=== PATIENT | male | born 1970 | race Caucasian/White ===

== ENCOUNTER 2018-02-21 14:41 | Inpatient (IN) | payer OTHER ==
[2018-02-21] MEDS ORDERED: NS 1,000 ML IV ONE (14:49)
--- NOTE | 2018-02-21 14:54 | EDPHY ---
H & P Time Seen by Provider: 02/21/18 14:51 HPI/ROS: CHIEF COMPLAINT: Seizure HISTORY OF PRESENT ILLNESS: The patient is a 47-year-old man with a history of heavy alcohol use who is brought to the emergency department after having a seizure. Paramedics state that 911 was called because the patient was having tingling on the right side of his body and had to sit down. When paramedics arrived the patient was actively seizing. They gave him 5 of Valium in his seizure a resolved. He has been postictal ever since. Family reports history of heavy alcohol use. Patient tells me he last drank yesterday evening around 9 o'clock. No history of previous surgeries. No history of trauma. No focal weakness. No headache. REVIEW OF SYSTEMS: Constitutional: denies: chills, fever, recent illness, recent injury EENTM: denies: blurred vision, double vision, nose congestion Respiratory: denies: cough, shortness of breath Cardiac: denies: chest pain, irregular heart rate, lightheadedness, palpitations Gastrointestinal/Abdominal: denies: abdominal pain, diarrhea, nausea, vomiting, blood streaked stools Genitourinary: denies: dysuria, frequency, hematuria, pain Musculoskeletal: denies: joint pain, muscle pain Skin: denies: lesions, rash, jaundice, bruising Neurological: See HPI denies: headache, dizziness, weakness Hematologic/Lymphatic: denies: blood clots, easy bleeding, easy bruising Immunologic/allergic: denies: HIV/AIDS, transplant EXAM: GENERAL: Slightly confused, well-nourished and in no acute distress. HEAD: Atraumatic, normocephalic. EYES: Pupils equal round and reactive to light, extraocular movements intact, sclera anicteric, conjunctiva are normal. ENT: TMs normal, nares patent, oropharynx clear without exudates. Moist mucous membranes. NECK: Normal range of motion, supple without lymphadenopathy or JVD. LUNGS: Breath sounds clear to auscultation bilaterally and equal. No wheezes rales or rhonchi. HEART: Regular rate and rhythm without murmurs, rubs or gallops. ABDOMEN: Soft, nontender, normoactive bowel sounds. No guarding, no rebound. No masses appreciated. BACK: No CVA tenderness, no spinal tenderness, step-offs or deformities EXTREMITIES: Normal range of motion, no pitting or edema. No clubbing or cyanosis. NEUROLOGICAL: Slightly slurred speech, Cranial nerves II through XII grossly intact. 5/5 strength, normal movement in all extremities, normal sensation PSYCH: Normal mood, normal affect. SKIN: Warm, dry, normal turgor, no visible rashes or lesions. Source: Patient, Family, EMS Exam Limitations: No limitations - Personal History Tetanus Vaccine Date: < 10 yrs - Medical/Surgical History Hx Asthma: No Hx Chronic Respiratory Disease: No Hx Diabetes: No Hx Cardiac Disease: No Hx Renal Disease: No Hx Cirrhosis: No Hx Alcoholism: No Hx HIV/AIDS: No Hx Splenectomy or Spleen Trauma: No Other PMH: dental surgery - Family History Significant Family History: No pertinent family hx - Social History Smoking Status: Current every day smoker Alcohol Use: Heavy Drug Use: None Constitutional: Initial Vital Signs Temperature (C) 36.8 C 02/21/18 14:41 Heart Rate 123 H 02/21/18 14:41 Respiratory Rate 32 H 02/21/18 14:41 Blood Pressure 134/82 H 02/21/18 14:41 O2 Sat (%) 89 L 02/21/18 14:41 O2 Delivery Mode Room Air O2 (L/minute) 2 Allergies/Adverse Reactions: No Known Allergies Allergy (Unverified 01/27/11 11:47) Home Medications: Medication Instructions Recorded Bupropion HCl [Zyban] 150 mg PO BID 02/21/18 Fexofenadine HCl [Meli Allergy] 180 mg PO DAILY PRN 02/21/18 Medical Decision Making - Diagnostics EKG Interpretation: An EKG obtained and was read and documented in trace view. Please see trace view for full reading and report. Sinus tachycardia, no acute ischemic changes Imaging Results: Imaging Impressions Head CT 02/21/18 14:50 Impression: Normal brain. No source for seizure identified. Results called and discussed with TENZIN RUSSELL, at 02/21/2018 15:42 General information for patients regarding this examination can be found at [email or web address]. If you have questions or comments about this report, please contact me at [phone] (hospital) or [phone] (cell). Brain MRI 02/21/18 16:13 Impression: Abnormal T2-weighted signal involving the posterior inferior left frontal and anterior inferior left parietal junction with 2 discrete subcentimeter ring-enhancing lesions, most concerning for primary versus metastatic malignancy. Most of the abnormal T2-weighted signal however is not enhancing, although there is restricted diffusion. Neurosurgical consultation is suggested. Findings were discussed with TENZIN RUSSELL MD at 18:13, on 02/21/2018. Imaging: Discussed imaging studies w/ fisher scallop Radiologist ED Course/Re-evaluation: 415 p.m. I spoke with Dr. Delaney from Neurology about the unusual nature the patient's seizure. There seem to be a generalized tonic-clonic component but also a partial complex component prodrome described by the father in law as paresthesias on his right side then slurred speech then facial droop. Neurology recommends we get an MRI with and without to rule out mass and if that is negative he can follow up in the clinic for further testing. No antiepileptic medications recommended at this time. We also discussed the possibility of alcohol withdrawal this seems less likely because the patient drinks 4-5 drinks every evening for the and typically does not drink during the day and has never had trouble with withdrawal before although his thinks that he did have elevated LFTs several years ago and was on medications to prevent withdrawal symptoms for about a week. 6:30 p.m. we discussed the patient's MRI results. I discussed them with Dr. Louis from Neurosurgery. He agrees that this is lost likely metastasis. He recommends admission for medical an oncologic workup. He will consult. I will start the patient on Keppra. He is a current smoker. 6:40 p.m. I discussed the case with Dr. Brasher who will admit to the medical service. Differential Diagnosis: Partial list of the Differential diagnosis considered include but were not limited to; alcohol withdrawal, epilepsy, cancer, tumor and although unlikely based on the history and physical exam, I also considered infection, trauma. Critical Care Time: Critical care time spent by me, Dr. Russell exclusive with this patient was 45 minutes, exclusive of the PA time exclusive of procedures. The organ system that was at risk was neurologic and I gave medications, diagnosis, consultation and admission to prevent worsening of the patient's condition - Data Points Laboratory Results: Laboratory Results 02/21/18 14:40 02/21/18 14:40 06/02/18 06/02/18 06/02/18 14:40 14:40 14:40 WBC 9.16 10^3/uL 10^3/uL (3.80-9.50) RBC 4.93 10^6/uL 10^6/uL (4.40-6.38) Hgb 15.7 g/dL g/dL (13.7-17.5) Hct 47.9 % % (40.0-51.0) MCV 97.2 fL fL (81.5-99.8) MCH 31.8 pg pg (27.9-34.1) MCHC 32.8 g/dL g/dL (32.4-36.7) RDW 12.1 % % (11.5-15.2) Plt Count 246 10^3/uL 10^3/uL (150-400) MPV 9.9 fL fL (8.7-11.7) Neut % (Auto) 35.5 % L % (39.3-74.2) Lymph % (Auto) 51.3 % H % (15.0-45.0) Dewitt % (Auto) 9.1 % % (4.5-13.0) Eos % (Auto) 3.3 % % (0.6-7.6) Baso % (Auto) 0.5 % % (0.3-1.7) Nucleat RBC Rel Count 0.0 % % (0.0-0.2) Absolute Neuts (auto) 3.25 10^3/uL 10^3/uL (1.70-6.50) Absolute Lymphs (auto) 4.70 10^3/uL H 10^3/uL (1.00-3.00) Absolute Monos (auto) 0.83 10^3/uL H 10^3/uL (0.30-0.80) Absolute Eos (auto) 0.30 10^3/uL 10^3/uL (0.03-0.40) Absolute Basos (auto) 0.05 10^3/uL 10^3/uL (0.02-0.10) Absolute Nucleated RBC 0.00 10^3/uL 10^3/uL (0-0.01) Immature Gran % 0.3 % % (0.0-1.1) Immature Gran # 0.03 10^3/uL 10^3/uL (0.00-0.10) PT 13.2 SEC SEC (12.0-15.0) INR 0.98 (0.83-1.16) Sodium 141 mEq/L mEq/L (135-145) Potassium 4.3 mEq/L mEq/L (3.3-5.0) Chloride 101 mEq/L mEq/L (97-110) Carbon Dioxide 13 mEq/l L mEq/l (22-31) Anion Gap 27 mEq/L H mEq/L (8-16) BUN 17 mg/dL mg/dL (7-23) Creatinine 1.3 mg/dL mg/dL (0.7-1.3) Estimated GFR 59 Glucose 116 mg/dL H mg/dL (70-100) Calcium 8.7 mg/dL mg/dL (8.5-10.4) Ethyl Alcohol < 10 mg/dL mg/dL (0-10) Medications Given: Discontinued Medications Sodium Chloride (Ns) 1,000 mls @ 0 mls/hr IV ONCE ONE; Wide Open PRN Reason: Protocol Stop: 02/21/18 14:50 Last Admin: 02/21/18 15:19 Dose: 1,000 mls Levetiracetam (Keppra (Premix)) 100 mls @ 400 mls/hr IV EDNOW ONE Stop: 02/21/18 18:50 Last Admin: 02/21/18 18:54 Dose: 100 mls Departure - Departure Disposition: [facility] Acute Clinical Impression: Metastasis to brain, Seizure Condition: Critical
[2018-02-21 15:17] LABS: PLATELET COUNT 246 10^3/uL (150-400)
[2018-02-21 15:28] LABS: INR 0.98 (0.83-1.16); PROTIME(PATIENT) 13.2 SEC (12.0-15.0)
--- NOTE | 2018-02-21 15:28 | CPEKG ---
Heart Rate: 100 RR Interval: 600 P-R Interval: 184 QRSD Interval: 104 QT Interval: 372 QTC Interval: 480 P Astatula: 70 QRS Astatula: 14 T Wave Astatula: 36 EKG Severity - BORDERLINE ECG - EKG Impression: SINUS TACHYCARDIA Electronically Signed By: Gerardo Russell 21-Feb-2018 15:28:56
[2018-02-21] MEDS ORDERED: GADOBUTROL 10 ML VIAL IVP ONE (16:36)
[2018-02-21] MEDS ORDERED: levETIRAcetam 500MG/NACL 100 ML IV ONE (18:36)
[2018-02-21] MEDS ORDERED: ONDANSETRON 4 MG/2 ML VIAL IVP PRN (20:38)
[2018-02-21] MEDS ORDERED: ACETAMINOPHEN 325 MG TAB PO PRN (20:38)
[2018-02-21] MEDS ORDERED: oxyCODONE IR 5 MG TAB PO PRN (20:38)
[2018-02-21] MEDS ORDERED: LORazepam 0.5 MG TAB PO PRN (20:38)
[2018-02-21] MEDS ORDERED: HYDROmorphone HCL/NS 0.5 MG/ML SYR IVP PRN (20:38)
[2018-02-21] MEDS ORDERED: LORazepam 2 MG/ML INJ IVP PRN (20:38)
[2018-02-21] MEDS ORDERED: PROMETHAZINE HCL 25 MG/ML INJ IVP PRN (20:38)
[2018-02-21] MEDS ORDERED: ONDANSETRON DISINTEGRATING 4 MG TAB PO PRN (20:38)
[2018-02-21] MEDS ORDERED: BUPROPION HCL 150 MG PO SCH (21:00)
--- NOTE | 2018-02-21 23:08 | GHP ---
[f rep st] HISTORY AND PHYSICAL DATE OF ADMISSION: 02/21/2018 CHIEF COMPLAINT: Seizure. HISTORY: This is a 47-year-old man with no significant past medical history other than heavy alcohol use, who presents status post a seizure at home. Patient notes that he was in the process of moving boxes when he began to feel significant tingling in his right arm. This was concerning enough to hi m that he walked over to his neighbor's house who is a retired MD and asked him to call 911. Patient notes that shortly after that he sat down and though he was able to maintain consciousness and was a rodriguez of his surroundings, he was unable to speak. He does not remember anything after that until sergey wing up in the hospital. His present at bedside notes that shortly after he sat down, he did de velop a full-blown tonic colonic seizure. This lasted 2-3 minutes per her estimation. After the sei zure abated, he was sleeping and very somnolent and intermittently confused for quite some time after wards. He has never had a seizure before. He does note that he drinks 4 to 7 beers every night, but has never had symptoms of withdrawal when he does not drink. A brain MRI was performed in the ER, w hich was concerning for 2 ring-enhancing lesions that Radiology felt were likely metastatic in nature . Neurosurgery was consulted and requested patient be admitted to Medicine. At the time of my evalu ation, patient is sleepy, but otherwise has no complaints. PAST MEDICAL HISTORY: None. PAST SURGICAL HISTORY: None. FAMILY HISTORY: Father with 2 TIAs and then of an NM. Brother had a CVA at age 42, but is othe rwise healthy. SOCIAL HISTORY: Patient is . He drinks 4 to 7 beers per night. He has been a smoker for 30+ pack-years. The patient works doing an online business. REVIEW OF SYSTEMS: A 10-point review of systems obtained, negative except as per HPI. The patient s pecifically denies any cough, GI issues, masses, or weight loss. HOME MEDICATIONS: Include: 1. Meli. 2. Bupropion. ALLERGIES: No known drug allergies. PHYSICAL EXAM: VITAL SIGNS: BP 117/86, heart rate 90, respiratory rate 16, O2 sats 94% on room air, temperature is 36.8. GENERAL APPEARANCE: Well-developed, well-nourished male. He is awake and cesar rt. No acute distress. EYES: Anicteric. HENT: Oropharynx is clear, MMM. CARDIOVASCULAR: RRR. No MRG. PULMONARY: CTA bilaterally. Normal work of breathing. ABDOMEN: Soft, nontender. Positiv e bowel sounds. EXTREMITIES: No clubbing, cyanosis, or edema. SKIN: Warm, dry, well perfused. LYMPHATIC: No axillary or cervical lymph nodes appreciated. EXTREMITIES: No clubbing, cyanosis, or edema. CLINICAL DATA: CBC is unremarkable. Chemistry is notable for a glucose of 116. less shaan n 10. EKG personally reviewed and interpreted, sinus tachycardia, no ischemic changes. Head CT unremarkable, personally reviewed. Brain MRI shows 2 discrete subcentimeter ring-enhancing lesions, most concerning for primary versus m etastatic malignancy. ASSESSMENT AND PLAN: This is a 47-year-old man, past medical history of alcohol abuse presenting wit h seizure and found to have most likely metastatic disease to the brain. 1. Seizure. This is felt to be most likely related to 2 lesions in his brain, though he does also h ave a history of heavy alcohol use. He will be kept on seizure precaution with p.r.n. Ativan availab le as needed. He does not have any signs of alcohol withdrawal at this time. 2. Brain lesions. These do appear consistent with metastatic disease per Radiology and Neurosurgery . CT chest, abdomen, pelvis have been ordered to look for primary lesion. He does not have any real localizing symptoms. Has never had a colonoscopy. We will check PSA, LDH, CEA, beta hCG and alpha fetoprotein. If there is something to biopsy, we will attempt to perform this in the morning. This is discussed at length with the patient and his . 3. Alcohol abuse. Again, currently no evidence of withdrawal. He has states he has never had withd rich in the past. We will monitor but have a low threshold to start CIWA. 4. Inpatient status. Suspect patient will need greater than 48 hours stay for evaluation and manage ment of above. 5. Patient is new to my care. Old records reviewed, summarized as per HPI and past medical history. Further history obtained from patient's , present at bedside. /[id number]/MODL
--- NOTE | 2018-02-22 08:39 | GCON ---
[f rep st] CONSULTATION DATE OF CONSULTATION: 02/22/2018 CONSULTING SERVICE: Emergency and Hospitalist Medicine. DEVELOPMENTAL WRITING INSTRUCTOR: Neurosurgery, Dr. Michel. REASON FOR CONSULT: First-time seizure with 2 small enhancing lesions on his MRI of the brain. HISTORY OF PRESENT ILLNESS: The patient is a 47-year-old male who has 30+ pack-year smoking history and moderate to heavy alcohol use, who presented to our emergency room yesterday after a witnessed ge neralized tonic-clonic seizure at home. This is his first-time seizure. His was present. He w as initially complaining of tingling in his right arm and walked over to a neighbor's house who is a retired doctor asking them to call 911. He then lost ability to speak and then developed a full-blow n tonic-clonic seizure that lasted approximately 2-3 minutes. After the seizure ended, he was quite somnolent and slowly came to, but was intermittently confused for quite a bit afterwards. He came in to the emergency room where a tox screen was done, which was negative including for alcohol use. He has never had withdrawal symptoms before. Head CT demonstrated no acute significant findings. Then, an MRI of the brain was done which demonstrated 2 small enhancing lesions in the left temporal regio n and some scattered FLAIR abnormalities on both sides of the brain. This morning, he is sleeping ca lmly, but easily arousable and gives his own history. He has no complaints. PAST MEDICAL AND SURGICAL HISTORY: Per HPI, otherwise negative. ALLERGIES: No known drug allergies. CODE STATUS: Full. FAMILY HISTORY: Father had 2 transient ischemic attacks and of a myocardial infarction. Brothe r had a stroke at age 42. SOCIAL HISTORY: . Drinks 4 to 7 beers a day. Smokes currently, and has a 30+ pack-year hist ory. 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 REVIEW OF SYSTEMS: Ten points reviewed and negative other than stated in HPI. HOME MEDICATIONS: Meli and bupropion. PHYSICAL EXAM: VITAL SIGNS: The patient is afebrile at 36.8 degrees centigrade. His heart rate is 72. His blood pressure is 96/63, his respiratory rate is 16, and he is saturating 95% on room air. NEUROLOGIC: The patient is asleep, but easily arousable. Once aroused, he is oriented x3. He is fl uent in speech. He has normal cranial nerves. He has 5/5 strength in upper and lower extremities. He does not have a pronator drift. He has normal sensory exam to light touch and pinprick. He has n ormal deep tendon reflexes. He does not have a Ambrose's, clonus, or Babinski sign. He does not hav e cerebellar findings. Gait is deferred. LABS: White blood cell count is 9.16, hemoglobin is 15.7, platelet count is 246. INR 0.98. Sodium is 141, potassium is 4.3, BUN 17, creatinine 1.3, glucose 116. Lactate dehydrogenase is elevated at 686. Other tumor markers pending. Tox screen negative. Alcohol level less than 10. IMAGING: I reviewed the patient's noncontrasted head CT and agree that it is a normal study. I revi ewed the patient's MRI of the brain with and without contrast and agree with 2 small enhancing lesion s in the left temporal region with some scattered FLAIR abnormalities on both sides of the brain that are also very small. IMPRESSION AND PLAN: The patient is a 47-year-old male with a history significant for alcohol use an d 30+ pack years of smoking history who had a first-time seizure yesterday and presented to the [facility] ency room where an MRI of the brain was performed demonstrating 2 small enhancing lesions in the left temporal region, likely representing metastatic cancer. The patient has been admitted to the medici ne service for metastatic workup. differential includes lung cancer. These lesions are s mall and it would be our hope that a diagnosis can be obtained without having to biopsy them. If a d iagnosis is made without the need for a brain biopsy, there is no role for surgical resection given t heir small size and we will determine systemic and radiation treatment after diagnosis has been obtai alyce. Given the fact the patient did have a seizure, I recommend he be placed on Keppra 750 mg twice a day by mouth and I have ordered this. We are following closely along. /[id number]/MODL
[2018-02-22] MEDS ORDERED: CETIRIZINE 10 MG TAB PO PRN (09:00)
[2018-02-22] MEDS ORDERED: ENOXAPARIN 40 MG/0.4 ML SYR SC SCH (09:00)
--- NOTE | 2018-02-22 09:37 | ASMTCMCOM ---
CM Note CM Note Notes: 47yr old male admitted for Sz, Brain lesions. Has a Hx of heavy ETOH and a smoker. Lives with his . May not get biopsied. May not have discharge needs at this time. Date Signed: 02/22/2018 09:36 AM Electronically Signed By:Naty Escalante LCSW
[2018-02-22] MEDS ORDERED: IOPAMIDOL (ISOVUE-300) 100 ML BTL ONE (10:53)
[2018-02-22] MEDS: levETIRAcetam 500 MG TAB PO SCH ×2 (11:01→20:44)
[2018-02-22] MEDS: buPROPion SR 100 MG TAB PO SCH ×2 (11:01→20:46)
--- NOTE | 2018-02-22 15:11 | GCON ---
[f rep st] CONSULTATION MEDICAL ONCOLOGY CONSULTATION DATE OF CONSULTATION: 02/22/2018 REASON FOR CONSULTATION: Further workup of brain lesions suspicious for metastatic disease with unkn own primary. RECOMMENDATIONS: 1. Since there is no obvious primary found on CT of the chest, abdomen, and pelvis, I would recommen d re-evaluation by Neurosurgery for biopsy. The tissue will be necessary to be able to rule in or ru le out malignancy, and in addition to give us information about tissue type, possible primary sites, and also be able to guide therapy. 2. Patient will likely need radiation therapy to the identified brain lesions if malignancy is ruled in. This will likely be carried out by [facility]. 3. I agree with using Keppra in an attempt to keep his seizures under control. 4. I advised him he should be seizure-free for 3 months before considering driving he can. 5. The patient will likely need additional workup as an outpatient to define the source of primary, as well as extent of disease. This will likely be with a PET-CT scan, endoscopies, or other testing deemed appropriate by the tissue type. ASSESSMENT: This 47-year-old white male presents with a new onset of seizures. The seizures started after he was moving to new home. He developed tingling and shaking in his right arm, which eventual ly went into his face, caused slurred speech, and then loss of conscious. This was witnessed by his neighbor who is a retired physician. 911 was called and the patient was brought to [facility] for further evaluation. The patient's MRI showed at least 2 lesions that are suspicious for metasta tic disease. The patient has no known primary cancer at this time. He had a CT of the chest, abdomen, and pelvis, which did not reveal obvious evidence of primary malignancy or a lesion that was easier to biopsy. He has been started on Keppra for his seizures. The patient has been seen by Neurosurgery. Since ere is no obvious easier place to get to for tissue, I have recommended that he see Dr. Michel once a gain for consideration for biopsy. The prognosis and treatment are going to be dictated by the tissue type. This will to be dictated by tissue type, as well as extent of disease. We discussed a variety of different etiologies that can present in this fashion, such as adenocarcinomas, melanoma, sarcoma, as well as carcinoma of unknown primary. Further treatment planning and prognostication will need to wait for further workup. HISTORY OF PRESENT ILLNESS: Please see assessment. PAST MEDICAL HISTORY: Essentially otherwise unremarkable. PAST SURGICAL HISTORY: Also essentially unremarkable. FAMILY HISTORY: Remarkable for his father dying of myocardial infarction and having had 2 TIAs. His brother had a CVA at age 42. SOCIAL HISTORY: The patient is . He had been drinking alcohol fairly heavily until approxima marion 3 months ago, then because of abnormal liver functions, stopped drinking. His liver functions w ent back down to normal. He has resumed drinking alcohol again at a somewhat lower level, however. The patient is a current smoker and has smoked approximately a 30+ pack years. He has been employed mostly in the financial industry. He works mostly from home at this time. REVIEW OF SYSTEMS: In addition to being remarkable for his above-mentioned seizure. Is remarkable f or some weight loss of approximately 15 pounds, but this occurred when stopping drinking. His weight is now stabilized. He reports no nausea or vomiting. Reports no fevers. He has had no unusual lym phadenopathy. He has had no change in bowel or bladder habits. He does not have skin exams on a reg ular basis. PHYSICAL EXAMINATION: GENERAL: Reveals an alert white male in no acute distress. HEENT: Essential ly unremarkable. NECK: Supple without adenopathies. LUNGS: Clear to auscultation. CARDIAC: Regu lar rate and rhythm abdominal exam shows normal bowel sounds. No hepatosplenomegaly is noted. LYMPH NODES: Peripheral lymph node exam shows no palpable adenopathy in the neck, axilla, or groin bilate rally. LOWER EXTREMITIES: Show no edema. SKIN: Shows 2 somewhat dark, but flat, round lesions on his back that are slightly very variegated in color, but not ulcerated. These are not particularly s uspicious for melanoma, but I suppose could be a possible source. LABORATORY DATA: Remarkable for normal creatinine of 1.3. His LDH is slightly elevated at 686 with the upper limit being 618. CEA is normal at 2.63. His alpha fetoprotein is normal at 2.45. His PSA is pending. His CBC shows normal white count of 9.16 with a hemoglobin of 15.7 and a platelet count of 246,000. His toxicology screen is negative. His INR is normal at 0.98. Thank you very much for allowing us to participate in this pleasant gentleman's oncologic care, and katharine hood look forward to assisting with his management during this hospitalization, as well as after dischar ge. /[id number]/MODL
[2018-02-22] MEDS ORDERED: PEG 3350/NA SULF,BICARB,CL/KCL (GAVILYTE-G) 4000 ML BTL PO ONE (15:18)
--- NOTE | 2018-02-22 15:49 | HOSPPROG ---
Hospitalist Progress Note Assessment/Plan: The patient is a 47-year-old male with PMH tobacco dependence, alcohol use who was admitted for seizure and found to have 2 lesions in his brain. ASSESSMENT/PLAN: Ring enhancing lesions on MRI - likely metastatic cancer Seizure, 2/2 above Tobacco dependence Alcohol use disorder -DDx metastatic cancer, primary cancer (astrocytoma or lymphoma), abscess/ infection, demyelinating syndrome (MS), migraine-induced vasculitis. -Discussed case w/ Oncology, GI, NSG, and Radiology. -CT chest/abd/pelvis negative for a source of primary cancer. Physical exam - no evidence of melanoma or breast cancer. -Consulted GI, see below. -Although GI primary cancers rarely metastasize to brain, pt is old enough for CRC screening (recommended age to start is 45yo per [employer]) and he has risk factors for upper GI cancer w/ smoking/alcohol use. GI to do EGD /colonoscopy tomorrow to evaluate for an alternate possible source. -NSG can do a biopsy this week - earliest would be on Friday. Tomorrow Dr. Michel will arrange a biopsy for Friday. -Continue Keppra now and on DC. -Avoid steroid and check HIV test (per NSG). -Seizure precautions, CIWA protocol, lorazepam prn VTE prophylaxis: not needed - pt is ambulatory. Code Status: Full Status: Inpatient for greater than 2 midnight stay. Disposition: Med surge with discharge anticipated tomorrow, after patient gets procedures done in AM and gets on the OR schedule for biopsy. This patient is new to me. reviewed chart. ____ Subjective: Today pt feels well, no seizures. Objective: Vital Signs Temp Pulse Resp BP Pulse Ox 36.6 C 70 16 104/65 94 02/22/18 12:02 02/22/18 12:02 02/22/18 12:02 02/22/18 12:02 02/22/18 12:02 02/21/18 02/22/18 02/23/18 05:59 05:59 05:59 Intake Total 500 Output Total 700 Balance -200 PT 13.2 SEC (12.0-15.0) 02/21/18 14:40 INR 0.98 (0.83-1.16) 02/21/18 14:40 OBJECTIVE: Physical Exam: General: The patient is a tall male who is alert and in no acute distress. HEENT: normocephalic, extraocular movements intact, conjunctivae clear. Mucous membranes moist. Neck: trachea midline, no visible masses. Abd: soft and nondistended. Bowel sounds present. Non tender throughout. Musculoskeletal: Normal muscle tone/bulk. Neuro: cranial nerves II XII grossly intact. Intact gross motor and sensory function. Psych: Appropriate mood and appropriate affect. Skin: No concerning nevi noted on skin. 1 mm round nevus on right thoracic back with slightly irregular coloration. Heme/lymph: No peripheral edema at bilateral lower extremities. Genital exam-no testicular masses or lesions noted. Breast: Pectoral tissue appears symmetric without any superficial lesions. No peau de orange or ecchymosis. No drainage or discharge from the nipples bilaterally. No palpable masses or lumps. No axillary lymphadenopathy. Labs/Imaging/Other Tests: CT abd/pelv/chest - negative for primary tumor. ICD10 Worksheet Patient Problems: Problems Problem Status Onset Metastasis to brain Acute Seizure Acute
[2018-02-23 04:49] LABS: HIV TYPE 1 AND 2 NEGATIVE (NEGATIVE)
--- NOTE | 2018-02-23 07:15 | NEUSURGPN ---
Assessment/Plan: Assessment: 47 yo male with a 30+ pack yr hx of smoking and heavy ETOH abuse hx as well presented with seizure and noted to have left temporal enhancing lesions Plan: -2 enhancing lesions noted on brain MRI -CT CAP shows no obvious malignancy -pending GI workup today -IM admit-appreciate their care and workup -PT/OT -continue with continue pain control plan -seizure prophylaxis -warning signs given -call with any questions or concerns Subjective: Awake and alert. NAD. Rested well last night. No perez/neck/chest/abd or gu complaints. No f/c/n/v/d. Objective: AAO x 3, PERRLA/EOMI no droop CN 2-12 grossly intact +lt touch 5/5 BUE/BLE = Neuro Check Frequency: per routine Urinary Catheter in Place: No - Physician Discussed Patient with : [facility] Physical Exam - Vitals, I&O, Labs I and O 02/22/18 02/23/18 02/24/18 05:59 05:59 05:59 Intake Total 500 1050 Output Total 700 Balance -200 1050 Weight 81.7 kg Intake: Oral (ml) 500 1050 Output: Urine (ml) 700 Urinal 700 Other: Number of Voids Toilet 1 3 Number of Stools Toilet 3 Vital Signs Temp Pulse Resp BP Pulse Ox 36.6 C 58 L 16 96/65 L 93 02/23/18 05:53 02/23/18 05:53 02/23/18 05:53 02/23/18 05:53 02/23/18 05:53 ICD10 Worksheet Patient Problems: Problems Problem Status Onset Metastasis to brain Acute Seizure Acute
--- NOTE | 2018-02-23 07:41 | GCON ---
[f rep st] CONSULTATION REFERRING PHYSICIAN: Emilia Her DO CHIEF COMPLAINT: Questionable metastatic cancer to the brain. HISTORY OF PRESENT ILLNESS: I have been asked to see this 47-year-old gentleman by Dr. Her for evaluation of possible GI malignancy. The patient has no significant past medical history. Does drink a significant amount of alcohol, 6-7 beers per day. He had a seizure at home. He was moving some boxes and felt some tingling in his right arm. He went to a neighbor for help and then he had an episode of consciousness, where he was aware of his surroundings but was unable to speak. He presented to the hospital with his and while at the hospital, he developed a tonic-clonic seizure that lasted 2-3 minutes. He was somewhat postictal afterwards and confused. No prior history of seizures. He had a brain MRI done in the ER, which was concerning for 2 ring-enhancing lesions in the brain concerning for metastatic cancer. Neurosurgery was consulted. The patient had a full body CT scan of the chest and abdomen, which was unremarkable. He has no GI symptoms. Oncology was consulted. They recommended a biopsy to rule out malignancy. He was started on Keppra and it is also recommended he undergo a PET-CT scan as well as upper endoscopy and colonoscopy, per Oncology. As mentioned, he has no GI symptoms. He has no nausea, vomiting, heartburn, epigastric pain. No change in bowel habits. No diarrhea or constipation. No blood per rectum. He has no family history of colon cancer, colon polyps. Asked to see patient for further evaluation. PAST MEDICAL HISTORY: Negative. PAST SURGICAL HISTORY: Negative. FAMILY HISTORY: Remarkable for father who has had TIAs, of an ME. Brother , CVA at 42. Otherwise, family history is noncontributory per chief complaint. SOCIAL HISTORY: The patient is . Drinks 4-7 beers per day. Smoker, 30- pack years. MEDICATIONS: Meli and bupropion. ALLERGIES: He has no known drug allergies. REVIEW OF SYSTEMS: Negative for 10 systems other than mentioned in HPI. PHYSICAL EXAM: VITAL SIGNS: 96/65, heart rate 58, respiratory rate 16, 93%, 36.6, his temperature. GENERAL APPEARANCE: Pleasant gentleman lying in bed in no acute distress. HEENT: Normocephalic, atraumatic. EOMI. NECK: Supple. No cervical adenopathy. No thyromegaly. Mucous membranes moist. LUNGS: Clear. CARDIAC: Normal S1, S2 without murmur. ABDOMEN: Benign, soft. Normal bowel sounds. No hepatosplenomegaly. Nontender. EXTREMITIES: Without clubbing, cyanosis, edema. NEUROLOGIC: Grossly nonfocal. SKIN: Warm, dry, and intact. PSYCH: Alert and oriented x3. Normal affect. LABORATORY DATA: White count of 9.16, hemoglobin 15.7, hematocrit 47.9, platelets of 246,000. PT of 13.2, INR 0.98. Serum chemistries: Serum sodium 141, potassium 4.3, chloride 101, BUN 17, creatinine 1.3, blood sugar 116. Liver function tests: Total bilirubin of 1.0, AST of 42, ALT of 33, alkaline phosphatase 54. IMPRESSION: A 47-year-old gentleman with seizure and questionable metastatic disease to the brain. Unknown primary. Initial imaging with CT of the chest and abdomen were unremarkable. We will proceed with diagnostic endoscopy, colonoscopy for evaluation for occult malignancy/gastrointestinal malignancy. RECOMMENDATIONS: EGD today. We will ask Anesthesia for assistance due to significant history of alcohol use, for assistance with his sedation. We will follow with you. /[id number]/MODL MTDD
[2018-02-23] MEDS ORDERED: fentaNYL 100 MCG/2 ML INJ IVP PRN (08:07)
[2018-02-23] MEDS ORDERED: NALOXONE HCL 0.4 MG/ML INJ IVP PRN (08:07)
[2018-02-23] MEDS ORDERED: ALBUTEROL 3 ML DEYVIAL IH PRN (08:07)
[2018-02-23] MEDS ORDERED: DEXAMETHASONE 4 MG/ML VIAL IVP PRN (08:07)
[2018-02-23] MEDS ORDERED: ONDANSETRON 4 MG/2 ML VIAL IVP PRN (08:07)
[2018-02-23] MEDS ORDERED: HYDROmorphONE/DILAUDID 2 MG/ML INJ IVP PRN (08:07)
--- NOTE | 2018-02-23 08:09 | PDANEPAE ---
ANE History of Present Illness EGD ANE Past Medical History - Cardiovascular History Hx Hypertension: No Hx Arrhythmias: No - Pulmonary History Hx COPD: Yes Hx Oxygen in Use at Home: No Hx Sleep Apnea: No Sleep Apnea Screening Result - Last Documented: Negative - Endocrine History Hx Diabetes: No Hypothyroid: No Hyperthyroid: No Obesity: no - Chronic Pain History Chronic Pain: Yes ANE Review of Systems Review of Systems: - Exercise capacity Exercise capacity: >=4 METS ANE Patient History - Allergies Allergies/Adverse Reactions: No Known Allergies Allergy (Unverified 01/27/11 11:47) - Home Medications Home Medications: Fexofenadine HCl [Meli Allergy] 180 mg PO DAILY PRN 02/21/18 [Last Taken Unknown] buPROPion SR [Wellbutrin 100mg SR (*)] 100 mg PO BID 02/22/18 [Last Taken 09:00] - NPO status NPO Since - Liquids (Date): 02/22/18 NPO Since - Liquids (Time): 00:00 NPO Since - Solids (Date): 02/22/18 NPO Since - Solids (Time): 19:00 - Smoking Hx Smoking Status: Current every day smoker - Alcohol Use Alcohol Use: Heavy ANE Labs/Vital Signs - Labs Result Diagrams: 02/21/18 14:40 02/21/18 14:40 - Vital Signs Blood Pressure: 99/69 Heart Rate: 66 Respiratory Rate: 16 O2 Sat (%): 94 Height: 190.5 cm Weight: 81.7 kg ANE Physical Exam - Airway Neck exam: FROM Mallampati Score: Class 2 - Pulmonary Pulmonary: clear to auscultation - Cardiovascular Cardiovascular: regular rate and rhythym - ASA Status ASA Status: II ANE Anesthesia Plan Anesthesia Plan: GA with mask
[2018-02-23] MEDS ORDERED: PROPOFOL/EMULSION 500 MG/50 ML BOTTLE IV ONE (08:13)
--- NOTE | 2018-02-23 08:29 | GIREPORT ---
[facility] Surgical Services - Endoscopy Department Patient Name: Warren Daigle Procedure Date: 02/23/2018 8:15 AM Patient Type: Inpatient Attending MD/ ER Physician: John Sage MD Procedure: Upper GI endoscopy Indications: Suspected tumor of the GI tract, Exclusion of tumor of the GI tract Providers: John Sage MD Medicines: General Anesthesia Complications: No immediate complications. Description of Procedure: After obtaining informed consent, the endoscope was passed under direct vision. Throughout the procedure, the patient's blood pressure, pulse, and oxygen saturations were monitored continuously. The Endoscope was intro duced through the mouth, and advanced to the second part of duodenum. The [facility] GI endoscopy was accomplished without difficulty. The patient tolerated th e procedure well. Findings: The Z-line was irregular and was found 38 cm from the incisors. Biopsie s were taken with a cold forceps for histology. A small hiatal hernia was present. Patchy mildly erythematous mucosa without bleeding was found in the gas tric antrum. Biopsies were taken with a cold forceps for histology. Patchy mild inflammation was found in the gastric antrum. The examined duodenum was normal. Estimated Blood Loss: Estimated blood loss: none. Post Op Diagnosis: - Z-line irregular, 38 cm from the incisors. Biopsied. - Small hiatal hernia. - Erythematous mucosa in the antrum. Biopsied. - Gastritis. - Normal examined duodenum. Recommendation: - Await pathology results. - Perform a colonoscopy today. - Thank you for allowing me to participate in the care of your patient. Attending Participation: I personally performed the entire procedure. John Sage MD John Sage MD 02/23/2018 8:29:21 AM This report has been signed electronicallyStevmegan Sage MD Number of Addenda: 0 Note Initiated On: 02/23/2018 8:15 AM [email or web address]}
--- NOTE | 2018-02-23 08:43 | GIREPORT ---
[facility] Surgical Services - Endoscopy Department Patient Name: Warren Daigle Procedure Date: 02/23/2018 8:25 AM Patient Type: Inpatient Attending MD/ ER Physician: John Sage MD Procedure: Colonoscopy Indications: Screening for colorectal malignant neoplasm, (Brain mets of uncertain o rigin) Providers: John Sage MD Medicines: General Anesthesia Complications: No immediate complications. Description of Procedure: After obtaining informed consent, the scope was passed under direct vis ion. Throughout the procedure, the patient's blood pressure, pulse, and oxyg en saturations were monitored continuously. The Colonoscope with irrigatio n channel was introduced through the anus and advanced to the cecum, identified by appendiceal orifice and ileocecal valve. The colonoscopy was performed without difficulty. The patient tolerated the procedure well. The quality of the bowel preparation was good. The ileocecal valve, appendi ceal orifice, and rectum were photographed. Findings: A 7 mm polyp was found in the rectum. The polyp was semi-pedunculated. The polyp was removed with a cold snare. Resection and retrieval were compl ete. The exam was otherwise without abnormality on direct and retroflexion v iews. Estimated Blood Loss: Estimated blood loss: none. Post Op Diagnosis: - One 7 mm polyp in the rectum, removed with a cold snare. Resected and retrieved. - The examination was otherwise normal on direct and retroflexion views . Recommendation: - Await pathology results. - Resume regular diet. - Repeat colonoscopy is recommended. The colonoscopy date will be deter mined after pathology results from today's exam become available for review. - If the pathology report reveals adenomatous tissue, then repeat the colonoscopy for surveillance in 5 years. - If the pathology report indicates hyperplastic polyp, then repeat colonoscopy for screening purposes in 10 years. - Thank you for allowing me to participate in the care of your patient. Attending Participation: I personally performed the entire procedure. John Sage MD John Sage MD 02/23/2018 8:42:42 AM This report has been signed electronicallyStferoz Sage MD Number of Addenda: 0 Note Initiated On: 02/23/2018 8:25 AM Total Procedure Duration Time 0 hours 8 minutes 4 seconds [email or web address]}
--- NOTE | 2018-02-23 08:47 | POSTANESTH ---
Post Anesthetic Evaluation Cardiovascular Status: Normal, Stable Respiratory Status: Normal, Stable Level of Consciousness/Mental Status: Can Participate in Eval, Alert and Oriented Pain Control: Adequate, Prn Tx Ordered Nausea/Vomiting Control: Adequate, Prn Tx Ordered Complications Possibly Related to Anesthesia: None Noted
--- NOTE | 2018-02-23 10:41 | SOAPPROG ---
SOAP Progress Note Assessment/Plan: Assessment: 1. seizure 2. 2 gas check pad maker lesions 3. small colon polyp, path pending Plan:Recommend biopsy, discussed scenarios at length with pt and so , if biopsy down the road could go home. 25 minutes 02/23/18 10:38 02/23/18 10:40 Subjective: Feels ok Objective: Vital Signs Temp Pulse Resp BP Pulse Ox 98.1 F 69 15 100/76 97 02/23/18 09:49 02/23/18 09:49 02/23/18 09:49 02/23/18 09:49 02/23/18 09:49 02/22/18 02/23/18 02/24/18 05:59 05:59 05:59 Intake Total 500 1050 150 Output Total 700 0 Balance -200 1050 150 PT 13.2 SEC (12.0-15.0) 02/21/18 14:40 INR 0.98 (0.83-1.16) 02/21/18 14:40 Physical Exam - Physical Exam General Appearance: alert, no apparent distress ICD10 Worksheet Patient Problems: Problems Problem Status Onset Metastasis to brain Acute Seizure Acute
--- NOTE | 2018-02-23 10:47 | ASMTCMCOM ---
CM Note CM Note Notes: Chart reviewed. Met with patient and to offer support and introduce CM to them. The recently moved from [place] to [place].The patient reported drinks beer daily. States he has never withdrawn Poor eye contact. Emotional support given as situation is stressful and though he has evidence of metastatic brain lesions, primary source yet to be identified. Needs to be determined, CM to follow. Plan: TBD. Date Signed: 02/23/2018 10:47 AM Electronically Signed By:Delmy Vera RN
[2018-02-23 11:36] VITALS: BP 106/71
[2018-02-23] MEDS: levETIRAcetam 500 MG TAB PO SCH (11:48)
[2018-02-23] MEDS: buPROPion SR 100 MG TAB PO SCH (11:49)
--- NOTE | 2018-02-23 13:37 | PDDCSUM ---
Discharge Summary Discharge Summary: Dates of service 02/21-02/23/18 Consultations: NSG, oncology, GI Procedures performed: brain MRI, chest/abd/pelvis CT, EGD, colonoscopy Hospital course by problem: # brain lesions: appear to be likely metastatic disease however primary tumor not found despite imaging and upper/lower endoscopy. Plan is for brain biopsy to be performed likely later this week per NSG # seizure: 2/2 above, continue keppra, continue seizure precautions # etoh abuse: no e/o withdrawal, recommend cessation Items for follow up: --brain biopsy --pathology from colonoscopy Dc home f/u with NSG, oncology pending reslts > 35 min spent in dc more than half in coordination of care
--- NOTE | 2018-02-23 14:15 | ASMTCAGE ---
CAGE Do you feel you ought to Answers: Yes cut down on your drinking or drug use? Do people annoy you by Answers: No criticizing your drinking or drug use? Do you feel guilty about Answers: No your drinking or drug use? Do you drink or use drugs Answers: No first thing in the morning ([employer])? Additional Comments declines resources Date Signed: 02/23/2018 02:15 PM Electronically Signed By:Delmy Vera RN
--- NOTE | 2018-02-23 14:20 | ASMTCMCOM ---
CM Note CM Note Notes: Per patient request, financial counselor contacted and will meet with patient at her earliest convenience. Date Signed: 02/23/2018 02:20 PM Electronically Signed By:Delmy Vera RN
--- NOTE | 2018-02-23 16:20 | ASMTLACE ---
DAWOODE Length of stay for Answers: 1 day current admission Acuity / Level of Answers: Yes Care: Did the patient have an inpatient admission? Comorbidities - select Answers: Any tumor (including all that apply lymphoma or leukemia) Other Notes: Sz # of Emergency department Answers: 1-2 visits in the last 6 months Social determinants Answers: History of substance abuse (ETOH, street drugs, prescription drugs, etc.) Score: 11 Date Signed: 02/23/2018 04:19 PM Electronically Signed By:Delmy Vera RN
--- NOTE | 2018-02-23 16:45 | ASMTCMCOM ---
CM Note CM Note Notes: Medically cleared for dc to home. No current needs. CM available should needs arise. Date Signed: 02/23/2018 04:43 PM Electronically Signed By:Delmy Vera RN
== END 2018-02-23 16:53 | disposition home or self-care (01) | DRG 55 ==
LOC: EDUNIT# → EDLOC 18:36 → OBSVTOIN 18:36 → F1N 20:06
PROVIDERS: ADMIT Internal Medicine; ATTEND Internal Medicine
PROC: 0DB68ZX Excision of Stomach, Via Natural or Artificial Opening Endoscopic, Diagnostic (ICD-10-PCS; principal; 2018-02-23 08:00)
PROC: 0DB48ZX Excision of Esophagogastric Junction, Via Natural or Artificial Opening Endoscopic, Diagnostic (ICD-10-PCS; principal; 2018-02-23 08:00)
PROC: 0DBP8ZX Excision of Rectum, Via Natural or Artificial Opening Endoscopic, Diagnostic (ICD-10-PCS; principal; 2018-02-23 08:00)
DX: D49.6 Neoplasm of unspecified behavior of brain (principal); G40.909 Epilepsy, unspecified, not intractable, without status epilepticus; D12.8 Benign neoplasm of rectum; F17.210 Nicotine dependence, cigarettes, uncomplicated; F10.10 Alcohol abuse, uncomplicated; Z82.49 Family history of ischemic heart disease and other diseases of the circulatory system
CPT/HCPCS: 80305; 84154-90; 84702-90; 92523-GN; A9585; G0480; J1953; J2704; Q9967

== ENCOUNTER 2018-02-24 18:19 | Inpatient (IN) | payer OTHER ==
--- NOTE | 2018-02-24 19:11 | EDPHY ---
H & P Stated Complaint: Concerned about brain biopsy Time Seen by Provider: 02/24/18 19:00 HPI/ROS: CHIEF COMPLAINT: concerned about withdrawals HISTORY OF PRESENT ILLNESS: The patient is a 47-year-old man who is brought to the emergency department by his at the advice of his oncologist Dr. Jackson. The patient's told Dr. Jackson that he was having withdrawal symptoms which the patient denies. He states he has not drank in the last 5 days. He was having night sweats initially but is not now. He is not tremulous or tachycardic. No nausea vomiting. I saw him on Friday after a first-time seizure. At that time we discovered several metastatic brain lesions. we admitted him but could not find a primary. The patient was scheduled for brain biopsy on however due to insurance reasons had changing to a different neurosurgeon in [facility]. The patient states that he has been somewhat angry and frustrated but denies suicidality or homicidality. Family is obviously concerned and called Dr. Jackson today stating that they thought he was having mood changes. The patient denies this. He is taking Keppra and has not had any further seizures. He has been prescribed dexamethasone as well but has not yet began taking them because he was told not to take them if he is having withdrawal symptoms. REVIEW OF SYSTEMS: Constitutional: denies: chills, fever, recent illness, recent injury EENTM: denies: blurred vision, double vision, nose congestion Respiratory: denies: cough, shortness of breath Cardiac: denies: chest pain, irregular heart rate, lightheadedness, palpitations Gastrointestinal/Abdominal: denies: abdominal pain, diarrhea, nausea, vomiting, blood streaked stools Genitourinary: denies: dysuria, frequency, hematuria, pain Musculoskeletal: denies: joint pain, muscle pain Skin: denies: lesions, rash, jaundice, bruising Neurological: See HPI denies: headache, numbness, paresthesia, tingling, dizziness, weakness Hematologic/Lymphatic: denies: blood clots, easy bleeding, easy bruising Immunologic/allergic: denies: HIV/AIDS, transplant EXAM: GENERAL: Well-appearing, well-nourished and in no acute distress. HEAD: Atraumatic, normocephalic. EYES: Pupils equal round and reactive to light, extraocular movements intact, sclera anicteric, conjunctiva are normal. ENT: TMs normal, nares patent, oropharynx clear without exudates. Moist mucous membranes. NECK: Normal range of motion, supple without lymphadenopathy or JVD. LUNGS: Breath sounds clear to auscultation bilaterally and equal. No wheezes rales or rhonchi. HEART: Regular rate and rhythm without murmurs, rubs or gallops. ABDOMEN: Soft, nontender, normoactive bowel sounds. No guarding, no rebound. No masses appreciated. BACK: No CVA tenderness, no spinal tenderness, step-offs or deformities EXTREMITIES: Normal range of motion, no pitting or edema. No clubbing or cyanosis. NEUROLOGICAL: Cranial nerves II through XII grossly intact. Normal speech, normal gait. 5/5 strength, normal movement in all extremities, normal sensation PSYCH: Somewhat angry, does not wish to be here. Normal mood, normal affect. SKIN: Warm, dry, normal turgor, no visible rashes or lesions. Source: Patient Exam Limitations: No limitations - Personal History Current Tetanus/Diphtheria Vaccine: Yes Tetanus Vaccine Date: < 10 yrs - Medical/Surgical History Hx Asthma: No Hx Chronic Respiratory Disease: No Hx Diabetes: No Hx Cardiac Disease: No Hx Renal Disease: No Hx Cirrhosis: No Hx Alcoholism: No Hx HIV/AIDS: No Hx Splenectomy or Spleen Trauma: No Other PMH: dental surgery/ lesions on brain - Family History Significant Family History: No pertinent family hx - Social History Smoking Status: Current every day smoker Alcohol Use: Sober Drug Use: None Constitutional: Initial Vital Signs Temperature (C) 36.6 C 02/24/18 18:24 Heart Rate 81 02/24/18 18:24 Respiratory Rate 17 02/24/18 18:24 Blood Pressure 126/86 H 02/24/18 18:24 O2 Sat (%) 96 02/24/18 18:24 O2 Delivery Mode Room Air Allergies/Adverse Reactions: No Known Allergies Allergy (Verified 02/24/18 18:23) Home Medications: Medication Instructions Recorded buPROPion SR [Wellbutrin 100mg SR 100 mg PO BID 02/22/18 (*)] levETIRAcetam [Keppra 500 mg (*)] 750 mg PO BID #60 tab 02/23/18 Medical Decision Making ED Course/Re-evaluation: 7:15 p.m. The patient is not having any signs consistent with withdrawal. He is somewhat angry and frustrated which is understandable considering his condition. I spoke with Dr. Fan who is on-call for Dr. Jackson and is familiar with the case and has seen the patient. 7:45 p.m. I discussed the case with Neurosurgery. They recommended admission for mental status issues and to initiate IV start steroids. They would like to have the biopsy done sooner rather than later. They will order IV steroids. I discussed this plan with the patient family. They are happy he will be admitted. He is having significant anxiety and mood issues. Patient also complains of intermittent headaches that are concerning. He has not yet had any repeat seizures. Differential Diagnosis: Partial list of the Differential diagnosis considered include but were not limited to; anxiety, depression, withdrawal and although unlikely based on the history and physical exam, I also considered head injury, infection. I discussed these differential diagnoses and the plan with the patient as well as the usual and expected course. The patient understands that the diagnosis is provisional and that in medicine we are not always correct and that further workup is often warranted. Usual and customary warnings were given. All of the patient's questions were answered. The patient was instructed to return to the emergency department should the symptoms at all worsen or return, otherwise to followup with the physician as we discussed. - Data Points Medications Given: Discontinued Medications Dexamethasone (Decadron Injection) 10 mg IVP EDNOW ONE Stop: 02/24/18 19:57 Last Admin: 02/24/18 20:21 Dose: 10 mg Departure - Departure Disposition: [facility] Inpatient Acute Clinical Impression: Metastasis to brain Condition: Fair
[2018-02-24] MEDS ORDERED: ONDANSETRON DISINTEGRATING 4 MG TAB PO PRN (19:54)
[2018-02-24] MEDS ORDERED: ONDANSETRON 4 MG/2 ML VIAL IVP PRN (19:54)
[2018-02-24] MEDS ORDERED: ACETAMINOPHEN 325 MG TAB PO PRN (19:54)
[2018-02-24] MEDS ORDERED: DEXAMETHASONE 10 MG/ML VIAL IVP ONE (19:56)
[2018-02-24] MEDS: NS 1,000 ML IV SCH (21:38)
[2018-02-24] MEDS: levETIRAcetam 500 MG TAB PO SCH (21:38)
[2018-02-25] MEDS: DEXAMETHASONE 4 MG/ML VIAL IVP SCH ×4 (00:29→17:52)
--- NOTE | 2018-02-25 09:28 | GHP ---
[f rep st] HISTORY AND PHYSICAL DATE OF ADMISSION: 02/24/2018 CHIEF COMPLAINT: Headache. HISTORY OF PRESENT ILLNESS: The patient is a 47-year-old male, who was recently admitted to [facility] with suspected alcohol withdrawal symptoms. Imaging was obtained of his head, which showed some posterior left temporal lesions suspicious for metastatic disease. He underwent significant workup including a CT scan of the chest, abdomen, and pelvis, which was negative for primary lesions. He was sent for a brain biopsy on February 26, 2018. He was discharged from [facility] but readmitted on February 24, 2018 with headaches. He currently complains of a mild generalized headache. He is not having any nausea or vomiting. He denies any weakness or paresthesias. PAST MEDICAL HISTORY: History of alcohol use. MEDICATIONS: Prior to admission are Keppra and Wellbutrin. ALLERGIES: No known drug allergies. FAMILY HISTORY: Patient has no family history of brain lesions. SOCIAL HISTORY: Patient is with children. He smokes approximately half pack to 1 pack of cigarettes per day. He drinks approximately 4-6 drinks per day, but he denies recreational drug use. REVIEW OF SYSTEMS: Negative. PHYSICAL EXAM: GENERAL: Patient is a 47-year-old male lying in bed, no apparent distress. HEAD, EYES, EARS, NOSE, AND THROAT: Negative for drainage. EXTREMITIES: [place], warm, and dry. NEUROLOGICAL: Patient is awake, alert, oriented x4. Pupils equal, round, reactive to light. Extraocular motions are intact. There is no evidence of facial droop. Tongue and uvula are midline. Spinal accessory muscles are intact. His motor strength is 5/5 in all muscle groups of his upper and lower extremities bilaterally. Deep tendon reflexes are 1/4 in the bilateral biceps, triceps, brachioradialis, patellar, and Achilles. Negative Kimberly's with no clonus. DIAGNOSTIC STUDIES: An MRI of the brain with and without contrast from [facility] on 02/21/2018 shows abnormal T2 signal. There is increased FLAIR signal in the posterior left temporal lobe near the lateral horn of the left lateral ventricle. There were pockets of postcontrast enhancement suspicious for metastatic disease. There is no hydrocephalus or any extra- axial fluid collection. A CT scan of the chest on February 22, 2018 from [facility] shows no evidence of intrathoracic malignancy. The CT scan of the abdomen and pelvis from February 22, 2018 shows no evidence of intraabdominal malignancy. IMPRESSION: This is a 47 year-old male with atypical left posterior temporal lesion suspicious for metastatic disease. He is neurologically stable. PLAN: All the above discussed in detail with the patient and his significant other, who was present in the room. At this point time, he has been admitted to the hospital. We will keep him on Keppra. We will make him n.p.o. after midnight today and plan for a stereotactic brain biopsy tomorrow, February 26, 2018. Please call with any neurological changes. The patient was seen and examined with Dr. Michel. /[id number]/MODL MTDD
[2018-02-25] MEDS: levETIRAcetam 500 MG TAB PO SCH ×2 (09:43→20:33)
[2018-02-25] MEDS: buPROPion SR 100 MG TAB PO SCH ×2 (09:43→20:33)
--- NOTE | 2018-02-25 12:29 | PDMN ---
Medical Necessity Medical necessity: [facility] [place]: [id number] headaches: A-1 day: INPT for: new posterior L temporal lesions suspicious for met. disease. brain biopsy pending. pt will be NPO
[2018-02-25] MEDS ORDERED: GADOBUTROL 10 ML VIAL IVP ONE (14:06)
--- NOTE | 2018-02-25 14:21 | ASMTCMCOM ---
CM Note CM Note Notes: Pt readmitted for headache after DC 02/23 . Pt has brain lesions. A biopsy is planned for today. Pt and his Julia are very anxious to get a diagnosis and understand the treatment options and his porgnosis. They also had concerns about pt's insurance not covering the brain biopsy by Dr Michel as outpt and wanting to make sure it would be covered as inpt. Debra in fin. counseling met with them to state she is fairly certain it will be covered. Juila asked for help getting MDPOA and JEANNIE paperwork filled out. This was provided to them. CM will continue to follow pt and for DC plan, resources and support. Date Signed: 02/25/2018 02:20 PM Electronically Signed By:Tammi Akers LCSW
[2018-02-25] MEDS: DIAZEPAM 5 MG/ML 1 ML SYR IVP PRN (23:23)
[2018-02-26] MEDS: DEXAMETHASONE 4 MG/ML VIAL IVP SCH ×5 (00:11→22:52)
[2018-02-26] MEDS: NS 1,000 ML IV SCH (06:10)
[2018-02-26] MEDS ORDERED: ceFAZolin 2 GM/DEXTROSE 100 ML IV ONE ×3 (07:24→14:00)
--- NOTE | 2018-02-26 07:24 | SOAPPROG ---
SOAP Progress Note Assessment/Plan: Assessment: 47 yo with left temporal lesions Plan: neuro: stable plan for OR around 2:45 for left temporal open biopsy npo please call with neuro changes discussed with Dr Michel 02/26/18 07:20 Subjective: no headaches, no N/V. Objective: Vital Signs Temp Pulse Resp BP Pulse Ox 36.4 C 65 16 100/60 95 02/25/18 19:59 02/26/18 06:07 02/26/18 06:07 02/25/18 23:25 02/26/18 06:07 02/25/18 02/26/18 02/27/18 05:59 05:59 05:59 Intake Total 400 1300 Balance 400 1300 AAOX4, +FC PERRL, EOMI, No facial droop WILL x 4 + light touch ICD10 Worksheet Patient Problems: Problems Problem Status Onset Metastasis to brain Acute Seizure Acute
[2018-02-26] MEDS: buPROPion SR 100 MG TAB PO SCH ×2 (08:56→21:18)
[2018-02-26] MEDS: levETIRAcetam 500 MG TAB PO SCH ×2 (08:57→21:15)
[2018-02-26] MEDS ORDERED: BUPIVACAINE/EPI 0.5% 30 ML SDV ONE (13:52)
[2018-02-26] MEDS ORDERED: BACITRACIN ZINC 14.2 GM OINTTUBE TP ONE (13:52)
[2018-02-26] MEDS ORDERED: THROMBIN (BOVINE) 20,000 UNIT VIAL TP ONE (13:53)
[2018-02-26] MEDS ORDERED: BACITRACIN 50,000 UNITS/10 ML SYR IRR ONE (13:53)
[2018-02-26] MEDS ORDERED: SURGIFLO MATRIX KIT WITH THROMBIN 8 ML TP ONE ×2 (13:54→16:00)
[2018-02-26] MEDS ORDERED: POVIDONE-IODINE 30 GM OINTTUBE TP ONE (13:54)
[2018-02-26] MEDS ORDERED: MANNITOL 20% 100 GM/500 ML BAG IV ONE (13:55)
[2018-02-26] MEDS ORDERED: niCARdipine/NACL/200 ML BAG IV ONE (13:55)
[2018-02-26] MEDS ORDERED: MIDAZOLAM 2 MG/2 ML VIAL IVP ONE (14:04)
--- NOTE | 2018-02-26 14:04 | PDANEPAE ---
ANE History of Present Illness L temporal brain biopsy with ilda ELIAS Past Medical History - Cardiovascular History Hx Hypertension: No Hx Arrhythmias: No - Pulmonary History Hx COPD: Yes Hx Oxygen in Use at Home: No Hx Sleep Apnea: No Sleep Apnea Screening Result - Last Documented: Negative - Endocrine History Hx Diabetes: No - Neurological & Psychiatric Hx Hx Neurological and Psychiatric Disorders: Yes Neurological / Psychiatric History Comment: brain mets, unknown primary - Chronic Pain History Chronic Pain: Yes ANE Review of Systems Review of systems is: negative Review of Systems: agitation anxiety - Exercise capacity METS (RN): 4 METS ANE Patient History - Allergies Allergies/Adverse Reactions: No Known Allergies Allergy (Verified 02/24/18 18:23) - Home Medications Home medications: home medication list seen and reviewed Home Medications: buPROPion SR [Wellbutrin 100mg SR (*)] 100 mg PO BID 02/22/18 [Last Taken 09:00] - NPO status NPO Status: no food or drink >8 hours NPO Since - Liquids (Date): 02/26/18 NPO Since - Liquids (Time): 00:00 NPO Since - Solids (Date): 02/26/18 NPO Since - Solids (Time): 00:00 - Anes Hx Anes Hx: no prior problems - Smoking Hx Smoking Status: Current every day smoker - Alcohol Use Alcohol Use: Heavy (past) - Family Anes Hx Family Anes Hx: none ANE Labs/Vital Signs - Vital Signs Vital Signs: reviewed preoperatively; see RN documention for details Blood Pressure: 116/85 Heart Rate: 91 Respiratory Rate: 16 O2 Sat (%): 96 Height: 190.5 cm Weight: 83.915 kg ANE Physical Exam - Airway Neck exam: FROM Mallampati Score: Class 1 Mouth exam: normal dental/mouth exam - Pulmonary Pulmonary: no respiratory distress - Cardiovascular Cardiovascular: regular rate and rhythym - ASA Status ASA Status: III ANE Anesthesia Plan Anesthesia Plan: general endotracheal anesthesia ([employer] would not allow me to save this document earlier) Urgent/Emergent Case: Frances gastelum completed preop but documented later for safe timely pt care
[2018-02-26] MEDS ORDERED: LR 1,000 ML IV ONE (14:05)
[2018-02-26] MEDS ORDERED: GENTAMICIN SULFATE 80 MG/2 ML VIAL ONE (14:19)
[2018-02-26] MEDS ORDERED: ONDANSETRON 4 MG/2 ML VIAL ONE (14:33)
[2018-02-26] MEDS ORDERED: DEXAMETHASONE 4 MG/ML VIAL ONE ×2 (14:33→18:08)
[2018-02-26] MEDS ORDERED: ROCURONIUM 50 MG/5 ML VIAL ONE (14:33)
[2018-02-26] MEDS ORDERED: LIDOCAINE 2% 100 MG/5 ML SYR ONE (14:33)
[2018-02-26] MEDS ORDERED: PROPOFOL 200 MG/20 ML VIAL ONE (14:34)
[2018-02-26] MEDS ORDERED: fentaNYL 250 MCG/5 ML INJ ONE (14:34)
[2018-02-26] MEDS ORDERED: PROPOFOL/EMULSION 500 MG/50 ML BOTTLE IV ONE (15:26)
[2018-02-26] MEDS ORDERED: PROMETHAZINE HCL 25 MG/ML INJ IVP PRN (16:12)
[2018-02-26] MEDS ORDERED: NALOXONE HCL 0.4 MG/ML INJ IVP PRN (16:12)
[2018-02-26] MEDS ORDERED: MEPERIDINE 25 MG/0.5 ML AMP IVP PRN (16:12)
[2018-02-26] MEDS ORDERED: oxyCODONE IR 5 MG TAB PO PRN (16:12)
[2018-02-26] MEDS ORDERED: ONDANSETRON 4 MG/2 ML VIAL IVP PRN (16:12)
[2018-02-26] MEDS ORDERED: LABETALOL HCL 5 MG/ML 20 ML MDV IVP PRN (16:12)
[2018-02-26] MEDS ORDERED: DEXAMETHASONE 4 MG/ML VIAL IVP PRN (16:12)
[2018-02-26] MEDS ORDERED: ACETAMINOPHEN 500 MG TAB PO PRN (16:12)
[2018-02-26] MEDS ORDERED: ALBUTEROL 3 ML DEYVIAL IH PRN (16:12)
[2018-02-26] MEDS ORDERED: HYDROCODONE/APAP 5/325 TAB PO PRN (16:12)
--- NOTE | 2018-02-26 16:15 | POSTANESTH ---
Post Anesthetic Evaluation Cardiovascular Status: Normal, Stable, Similar to Pre-Op Cond Respiratory Status: Similar to Pre-op Cond. Level of Consciousness/Mental Status: Can Participate in Eval, Mildly Sleepy, Arousable Pain Control: Adequate, Prn Tx Ordered Nausea/Vomiting Control: Adequate, Prn Tx Ordered Complications Possibly Related to Anesthesia: None Noted
--- NOTE | 2018-02-26 17:55 | POSTOPPROG ---
Post Op Note Date of Operation: 02/26/18 Surgeon: Boyd Michel Dope Worker: Bruno Sequeira Anesthesiologist: bruno Anguiano Anesthesia: GET(General Endotracheal) Pre-op Diagnosis: left temporal brain lesion Post-op Diagnosis: left temporal brain lesions Indication: brain lesions Procedure: right frontotemporal cranitomy and biopsy Findings: see full op note Inf/Abcess present in the surg proc area at time of surgery?: No Depth: Organ Space EBL: 50-100
[2018-02-26] MEDS ORDERED: POLYETHYLENE GLYCOL 3350 17 GM PKT PO PRN (17:57)
[2018-02-26] MEDS ORDERED: BISACODYL 10 MG SUPP PR PRN (17:57)
[2018-02-26] MEDS ORDERED: MAGNESIUM HYDROXIDE 30 ML UDCUP PO PRN (17:57)
[2018-02-26] MEDS ORDERED: LACTULOSE 20 GM/30 ML UDCUP PO PRN (17:57)
[2018-02-26] MEDS ORDERED: niCARdipine/NACL 200 ML IV PRN (17:57)
[2018-02-26] MEDS ORDERED: NS W/ 20 KCl/L 1,000 ML IV SCH (18:00)
--- NOTE | 2018-02-26 18:19 | NEUSURGPN ---
Date of Surgery: 02/26/18 Post Op Day: 0 Assessment/Plan: 47M s/p right sidedfrontotemporal craniotomy, biopsy and debulking of lesions. To ICU overnight [id number] strict ADAT MRI w/wo in am DVT ppx, JALYN's SCD's, Heparin POD2 follow pathology Pt seen by and dw Dr. Michel Subjective: groggy post anesthesia, comfortable Objective: VSS NAD no facial droop PEARLA, EOMI comprehends and answers questions appropriately MAEx4 SILT incision CDI Urinary Catheter in Place: No - Physician Discussed Patient with : Marilu Patient Seen by : Marilu Neurosurgery Physical Exam - Vitals, I&O, Labs I and O 02/25/18 02/26/18 02/27/18 05:59 05:59 05:59 Intake Total 400 1300 Balance 400 1300 Weight 83.915 kg 83.915 kg Intake: Oral (ml) 400 1300 IV Infused (ml) 0 Other: Number of Voids 1 Toilet 1 2 Vital Signs Temp Pulse Resp BP Pulse Ox 36.4 C 91 16 116/85 H 96 02/26/18 13:49 02/26/18 16:11 02/26/18 16:11 02/26/18 16:11 02/26/18 16:11 ICD10 Worksheet Patient Problems: Problems Problem Status Onset Metastasis to brain Acute Seizure Acute
[2018-02-26] MEDS ORDERED: fentaNYL 100 MCG/2 ML INJ ONE (18:26)
[2018-02-26] MEDS: fentaNYL 100 MCG/2 ML INJ IVP PRN ×4 (18:28→19:15)
[2018-02-26] MEDS ORDERED: HYDROmorphONE/DILAUDID 1 MG/ML INJ ONE (18:55)
[2018-02-26] MEDS: HYDROmorphONE/DILAUDID 1 MG/ML INJ IVP PRN ×2 (18:56→19:15)
[2018-02-26] MEDS ORDERED: HYDROCODONE/APAP 5/325 TAB ONE (19:20)
[2018-02-26] MEDS: SENNOSIDES/DOCUSATE SODIUM TAB PO SCH (21:15)
[2018-02-26] MEDS: HYDROCODONE/APAP 5/325 TAB PO PRN (21:15)
[2018-02-26] MEDS: oxyCODONE IR 5 MG TAB PO PRN (23:41)
[2018-02-27] MEDS: oxyCODONE IR 5 MG TAB PO PRN ×2 (03:20→07:22)
[2018-02-27] MEDS: DEXAMETHASONE 4 MG/ML VIAL IVP SCH ×4 (05:29→23:14)
[2018-02-27] MEDS: HYDROCODONE/APAP 5/325 TAB PO PRN (06:27)
[2018-02-27] MEDS: SENNOSIDES/DOCUSATE SODIUM TAB PO SCH ×2 (07:56→20:36)
[2018-02-27] MEDS: buPROPion SR 100 MG TAB PO SCH ×2 (07:58→20:36)
[2018-02-27] MEDS: levETIRAcetam 500 MG TAB PO SCH ×2 (07:59→20:36)
[2018-02-27] MEDS ORDERED: KETOROLAC 30 MG/1 ML SDV IVP ONE (08:00)
[2018-02-27] MEDS ORDERED: GADOBUTROL 10 ML VIAL IVP ONE (09:28)
--- NOTE | 2018-02-27 09:29 | NEUSURGPN ---
Date of Surgery: 02/26/18 Post Op Day: 1 Assessment/Plan: Assessment: 47M s/p right sidedfrontotemporal craniotomy, biopsy and debulking of lesions POD#1 Plan: -Keep [id number] -Advance diet as tolerated -MRI brain w/wo pending, possible transfer to floor following MRI -PT/OT/ST -DVT ppx, JALYN's SCD's, Heparin POD2 -will follow pathology -Case management to eval for dispo options Patient was seen by Dr Michel as well Subjective: Feeling groggy, difficulty with hearing Objective: AxO x3 PERRLA No facial droop CN 2-12 grossly intact aside from some bilateral hearing deficit 5/5 BUE, BLE Neuro Check Frequency: per routine Urinary Catheter in Place: No - Physician Patient Seen by : Marilu Neurosurgery Physical Exam - Vitals, I&O, Labs I and O 02/26/18 02/27/18 02/28/18 05:59 05:59 05:59 Intake Total 1300 3230 Output Total 1050 Balance 1300 2180 Weight 83.915 kg Intake: Oral (ml) 1300 1230 IV Intake (ml) 2000 Output: Urine (ml) 1000 Catheter 1000 Estimated Blood Loss (ml) 50 Other: Intake Quantity Yes Sufficient Number of Voids Toilet 2 1 Vital Signs Temp Pulse Resp BP Pulse Ox 36.5 C 67 18 111/76 99 02/27/18 08:00 02/27/18 08:00 02/27/18 08:00 02/27/18 08:00 02/27/18 08:00 ICD10 Worksheet Patient Problems: Problems Problem Status Onset Metastasis to brain Acute Seizure Acute
[2018-02-27] MEDS ORDERED: LORazepam 2 MG/ML INJ IVP ONE (10:00)
[2018-02-27] MEDS: KETOROLAC 15 MG/1 ML SDV IVP SCH ×3 (12:33→23:14)
--- NOTE | 2018-02-27 13:56 | ASMTCMCOM ---
CM Note CM Note Notes: Per record review and Rounds for D/C planning, Pt diagnosed with brain metastasis, anxiety and headaches. He had a s/p right sided frontaltemporal craniotomy, biopsy and debulking of legions POD#1. Pending results of new MR,I may be transferred to medical floor. CM will continue to follow for D/C needs. D/C Plan: TBD. CM will continue to follow. Date Signed: 02/27/2018 01:55 PM Electronically Signed By:Torie Madera
[2018-02-27] MEDS: DIAZEPAM 5 MG/ML 1 ML SYR IVP PRN (22:52)
[2018-02-28] MEDS: KETOROLAC 15 MG/1 ML SDV IVP SCH ×2 (05:07→12:51)
[2018-02-28] MEDS: DEXAMETHASONE 4 MG/ML VIAL IVP SCH ×2 (05:08→12:51)
[2018-02-28 07:40] VITALS: BP 111/71
[2018-02-28] MEDS: levETIRAcetam 500 MG TAB PO SCH (08:32)
[2018-02-28] MEDS: buPROPion SR 100 MG TAB PO SCH (08:32)
[2018-02-28] MEDS: SENNOSIDES/DOCUSATE SODIUM TAB PO SCH (08:36)
--- NOTE | 2018-02-28 10:38 | ASMTCMCOM ---
CM Note CM Note Notes: Spoke with pt's :Julia today. Pt recovering well from surgery and plan is to DC today. They will have no DC needs and will f/u with Dr Jackson as outpt. Date Signed: 02/28/2018 10:37 AM Electronically Signed By:Tammi Akers LCSW
--- NOTE | 2018-02-28 12:28 | NEUSURGPN ---
Date of Surgery: 02/26/18 Post Op Day: 2 Assessment/Plan: 47M s/p right sidedfrontotemporal craniotomy, biopsy and debulking of lesions. MRI shows total resection of 2 lesions, 1 lesion remains -PT/OT/ST -DVT ppx, JALYN's SCD's, Heparin POD2 -continue Keppra -start decadron taper -will follow pathology -home later today Subjective: doing very well. Multiple questions from him and his . Objective: NAD VSS EOMI, PEARLA speech clear, mild hesitation very occasionally MAEx4, no drift 5/5 no facial droop [place] normal gait incision CDI Urinary Catheter in Place: No - Physician Discussed Patient with : Marilu Neurosurgery Physical Exam - Vitals, I&O, Labs I and O 02/27/18 02/28/18 03/01/18 05:59 05:59 05:59 Intake Total 3230 1250 Output Total 1050 Balance 2180 1250 Weight 83.915 kg Intake: Oral (ml) 1230 1250 IV Intake (ml) 2000 Output: Urine (ml) 1000 Catheter 1000 Estimated Blood Loss (ml) 50 Other: Intake Quantity Yes Yes Sufficient Number of Voids Catheter 1 Toilet 1 1 Number of Stools Catheter 0 Vital Signs Temp Pulse Resp BP Pulse Ox 36.5 C 68 12 111/71 94 02/28/18 07:38 02/28/18 07:38 02/28/18 07:38 02/28/18 07:38 02/28/18 07:38 ICD10 Worksheet Patient Problems: Problems Problem Status Onset Metastasis to brain Acute Seizure Acute
[2018-02-28] MEDS ORDERED: HEPARIN 5,000 UNIT/0.5 ML INJ SC SCH (22:00)
--- NOTE | 2018-03-04 13:56 | GOP ---
[f rep st] OPERATIVE REPORT DATE OF OPERATION: 02/26/2018 SURGEON: Boyd Michel MD HOSPITAL ORDERLY: Bruno Sequeira PA-C. ANESTHESIA: General endotracheal anesthesia. 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 PROCEDURE PERFORMED: FINDINGS: ESTIMATED BLOOD LOSS: 50 cc. DESCRIPTION OF PROCEDURE: The patient was brought to the operating room and a sign-in was performed. He was given antibiotics to prevent postoperative infection. He was given mannitol to reduce brain swelling. He had previously been on high-dose dexamethasone IV and Keppra. He was smoothly induced under general anesthesia and intubated without difficulty. Appropriate IV access was obtained. A F oley catheter was placed. The patient's head was placed in a three-point [place] hogshead mat assembler to 80 pounds per square inch. His head was turned 90 degrees to the right thereby allowing for the operati ve left side to be up facing the field. The Stealth Navigational tower was hooked up to the [place] and the Stealth was registered. It was highly accurate and fiducials were used. The Stealth was us ed to identify the epicenter of the mass and a 3 cm incision was centered over this linear coronal pl ane. A small amount of hair was shaved. The scalp was washed with chlorhexidine shampoo and rubbing alcohol which was allowed to dry. The incision was retraced. ChloraPrep was used to sterilize the scalp. 0.25% Marcaine with 1:200,000 parts of epinephrine was injected along the planned incision li ne. A sterile field was created with blue towels, and Ioban and a sterile surgical drape. Prior to initiating the procedure, a time-out was performed in which all members of Surgery, Nursing, and Anes thesia went over the necessary checklist items and agreed to proceed. A #15 scalpel used to incise t he skin and the galea. A self-retaining retractor was placed. Temporalis fascia was incised with Eros vie electrocautery. The temporalis muscle was dissected laterally. Retractors were replaced. We ve rified Stealth and used it again to find the epicenter of the tumor, which was in the very center of our opening. We planned a small oval-shaped craniotomy. We completed the craniotomy with a bur perf orator drill bit and a craniotome. There was no violation of the dura or injury of the brain during the craniotomy. We obtained epidural hemostasis and irrigated the bone dust. We opened the dura sha rply in a cruciate fashion and flapped back the 4- dural leaflets and secured them with 4-0 Nurolon s titches. Again, we checked our Stealth and again the corridor to posterior left sylvian fissure, was found to be the safest and quickest route into the superficial insula to obtain biopsy of the 2-larg est dominant lesions in that location. Cauterized a small bridging vein and we split the fissure wit hout difficulty and using Stealth, we began removing all the abnormal tissue with biopsy forceps. Af ter we removed the first lesion, I took the specimen down to Pathology myself and looked at with Dr. Valdes and Dr. Apple. Despite the fact that I felt the tissue was lesional based on its appearance and texture, particularly compared to surrounding brown, thin, or obviously normal brain when I was in surgery, they did not feel like they had enough tissue to make an appropriate diagnosis. We decid ed to proceed with resection of the second lesion as well. I returned to the operating room. During this time, I positioned the cyst and had been closely watching the patient under anesthesia. I was away for approximately 15-minutes. Once I returned to the operating room, I scrubbed back in and the n proceeded to take the second lesion entirely. At the end of the resection, I felt that all edges o f the operative cavity appeared quite normal and the Stealth Navigation indicated that I was around b oth lesions in all directions with the remaining of the specimen for permanent section and proceed wi th closure. I obtained operative cavity hemostasis and irrigated out the cavity with copious amounts of antibiotic solution. We flapped the dural leaflets back down and closed them with 4-0 Nurolon. In the epidural space, we placed thrombin-soaked Gelfoam and Surgiflo in there to prevent postoperati ve hematoma. We replated the bone with titanium plates and secured them to the skull flap with 4 mm screws and we replaced the bone and secured it to the capitan grande band cranium with 4 mm screws as well. The o perative incision was then closed with the temporalis muscle and fascia with 0 Vicryl sutu re. We closed the galea with inverted 2-0 Vicryl suture. We closed the skin with a 4-0 Monocryl in a running fashion. We cleaned the wound and dressed it with bacitracin ointment. The drapes were re moved. The patient's head was taken out of the [place] hogshead mat assembler and he was returned to Anesthesi a where he was reversed from its effects and extubated without difficulty. All counts were correct. I was there for the entirety of the procedure, with the exception of a brief period in the Pathology Department. There were no immediate surgical anesthetic complications. The patient was taken to [facility] recovery area where he was found to be awake and alert, moving all extremities, at full strength wi th reasonably intact expressive and receptive speech. Orders were given for him to be transferred to the ICU for overnight observation, and an MRI of the brain in the morning to ensure we had resected the tissue we were after. I updated his personally regarding the details of the procedure and she was very grateful for [facility] care I had given her . PROCEDURE PERFORMED: Left temporal craniotomy for open biopsy and resection of multiple intra-axial brain tumors with use of Stealth Neuro Navigation. COMPLICATIONS: None. IMPLANTS: 4 mm titanium plates and screws. SPECIMENS REMOVED: Left insular tumor was removed and sent for frozen and permanent sections. The f rozen was nondiagnostic. INDICATIONS FOR PROCEDURE: The patient is a pleasant 47-year-old male who has very little past medic al history who presented with a first-time seizure and some expressive speech difficulties. An MRI o f his brain was performed demonstrating multiple small enhancing nodules in his left insula and parie sharif region as well as some FLAIR signal abnormalities. He had an entirely negative metastatic workup including a colonoscopy. This found only a small polyp. After discussions with the Oncology Team farhad turner, we felt that the next step and diagnosis would be core biopsy of his cerebral lesions. Risks, b enefits and alternatives were discussed in detail with the patient and his . He signed informed consent for the procedure. /[id number]/MODL
== END 2018-02-28 15:18 | disposition home or self-care (01) | DRG 27 ==
LOC: OBSVTOIN 19:54 → F1N 21:02 → F2N 02-26 16:00 → F3N 02-27 17:30
PROVIDERS: ADMIT Neurological Surgery; ATTEND Neurological Surgery
PROC: 00B00ZX Excision of Brain, Open Approach, Diagnostic (ICD-10-PCS; principal; 2018-02-26 15:00)
DX: C79.31 Secondary malignant neoplasm of brain (principal); Z72.0 Tobacco use
CPT/HCPCS: 92523-GN; 97116-GP; 97161-GP; 97166-GO; 97535-GO; A9585; C1713; J0690; J1100; J1170; J1580; J1885; J2001; J2060; J2250; J2270; J2405; J2704; J3010; J3360

== ENCOUNTER → 2018-06-02 | Outpatient (CLI) | payer OTHER ==
[~2018-06-02] MED LIST: GADOBUTROL 10 ML VIAL IVP ONE
== END ==
LOC: FIMAGING 13:38
PROVIDERS: ATTEND Nurse Practitioner
DX: C71.8 Malignant neoplasm of overlapping sites of brain (principal)
CPT/HCPCS: A9585